=== PATIENT | female | born 1940 | race Two or more races ===

== ENCOUNTER 2016-08-23 11:04 | Inpatient (IN) | payer MEDICARE ==
[~2016-08-23] VITALS: Ht 154.9 cm; Wt 62.6 kg
--- NOTE | 2016-08-23 11:06 | NUR ---
pt bib friend. ambulatory to er bed 12. here for psych eval. per friend pt appears to be, anxious, confused stating "i cant get dressed." "im having mental issues." pt upon assessment is anxious but aaox3. on monitor. tachy otherwise stable vitals. pt states her hr tend to be on always over 100. awaiting md alvarez.
[2016-08-23] MEDS ORDERED: IV NS 0.9% 1,000 ML BAG IV ONE (11:30)
--- NOTE | 2016-08-23 11:32 | NUR ---
dr rabago at bedside for eval.
--- NOTE | 2016-08-23 11:40 | NUR ---
iv line started blood drawn and sent to lab.
[2016-08-23] MEDS ORDERED: IV NS 0.9% 1,000 ML ONE (11:49)
[2016-08-23] MEDS ORDERED: IV SET PRIMARY 1 EA INFUS.SET MC ONE (11:49)
[2016-08-23 11:55] LABS: BASOPHILS # (AUTO) 0.1 /CMM (0.0-0.2); BASOPHILS % (AUTO) 0.8 % (0.0-2.0); CALCIUM, SERUM 9.4 mg/dL (8.5-10.1); CARBON DIOXIDE 28 mmol/L (21-32); CHLORIDE 100 mmol/L (98-107); CREATININE 1.1 mg/dL (0.6-1.3); EOSINOPHILS # (AUTO) 0.2 /CMM (0.0-0.7); EOSINOPHILS % (AUTO) 1.2 % (0.0-6.0); GLUCOSE 163 mg/dL (74-106); HEMATOCRIT 43 % (33-45); HEMOGLOBIN 14.5 g/dL (11.5-14.8); LYMPHOCYTES # (AUTO) 1.7 /CMM (0.8-4.8); LYMPHOCYTES % (AUTO) 12.4 % (20.0-44.0); MEAN CORPUSCULAR HEMOGLOBIN 30 PG (26.0-33.0); MEAN CORPUSCULAR HGB CONC 33 g/dl (31.0-36.0); MEAN CORPUSCULAR VOLUME 91 fL (82-100); MONOCYTES % (AUTO) 6.9 % (2.0-12.0); NEUTROPHILS # (AUTO) 10.8 /CMM (1.8-8.9); NEUTROPHILS % (AUTO) 78.7 % (43.0-81.0); PLATELET COUNT (AUTO) 261 /CMM (150-450); POTASSIUM 3.2 mmol/L (3.5-5.1); RED BLOOD CELL COUNT(AUTO) 4.77 MIL/uL (4.0-5.2); SODIUM SERUM 138 mmol/L (136-145); UREA NITROGEN, BLOOD 21 mg/dL (7-18); WHITE BLOOD COUNT (AUTO) 13.8 K/uL (4.3-11.0)
[2016-08-23 12:01] LABS: APPEARANCE,URINE Clear (CLEAR); BILIRUBIN,URINE Negative (NEGATIVE); BLOOD, URINE Trace-lysed Ery/uL (NEGATIVE); COLOR,URINE Dark (YELLOW); KETONES,URINE Negative (NEGATIVE); LEUKOCYTE ESTERASE ,URINE Trace (NEGATIVE); NITRITE, URINE Negative (NEGATIVE); PROTEIN,URINE 30 mg/dl (NEGATIVE); UGLUCOSE Negative (NEGATIVE); UROBILINOGEN,URINE 0.2 EU/dL (0.2)
[2016-08-23 12:02] LABS: ACETAMINOPHEN 0 ug/ml (10-30); ALANINE AMINOTRANSFERASE 27 U/L (12-78); ALBUMIN 3.4 g/dL (3.4-5.0); ALCOHOL, BLOOD < 3 mg/dL (0-0); ALKALINE PHOSPHATASE 102 U/L (46-116); ASPARTATE AMINOTRANSFERASE 18 U/L (15-37); BILIRUBIN,DIRECT 0.1 mg/dL (0.0-0.2); BILIRUBIN,TOTAL 0.4 mg/dL (0.2-1.0); SALICYLATE 1.2 mg/dL (2.8-20.0); TOTAL PROTEIN, SERUM 8.1 g/dL (6.4-8.2)
--- NOTE | 2016-08-23 12:02 | NUR ---
pt to radiology for head ct scan via [facility].
[2016-08-23 12:13] LABS: BACTERIA,URINE Moderate /HPF (None Seen); RBC,URINE 0-3 /HPF (0-2); SQUAMOUS EPITHELIAL CELL,UR Moderate /HPF (None Seen)
--- NOTE | 2016-08-23 12:19 | NUR ---
CALLED ART FOR PSYCH EVAL, ETA WITHIN THE HOUR
[2016-08-23] MEDS ORDERED: VENL150T PO (12:32)
[2016-08-23] MEDS ORDERED: ATOR10TA PO (12:32)
[2016-08-23] MEDS ORDERED: HYDR25TA4 PO (12:32)
[2016-08-23] MEDS ORDERED: ZIPR80CA2 PO (12:32)
--- NOTE | 2016-08-23 13:30 | NUR ---
art shrimp trawler captain at bedside for psych eval.
--- NOTE | 2016-08-23 14:10 | NUR ---
IV removed. Catheter intact and site benign. Pressure and 4x4 applied to site. No bleeding noted.
--- NOTE | 2016-08-23 14:15 | NUR ---
report given to shay. pt awaiting transfer to psych floor.
[2016-08-23] MEDS ORDERED: ACETAMINOPHEN 325 MG TABLET PO PRN (15:00)
[2016-08-23] MEDS ORDERED: MAGNESIUM HYDROXIDE 30 ML UDC PO PRN (15:00)
[2016-08-23] MEDS ORDERED: MAG HYDROX/AL HYDROX/SIMETH 30 ML UDC PO PRN (15:00)
[2016-08-23 15:20] VITALS: BP 155/86
--- NOTE | 2016-08-23 15:59 | NUR ---
ADMITTED A 75 YEARS FEMALE ON 5150 FOR GD. PER HOLD PT. IS UNABLE TO CARE FOR SELF AND DEPRESSED, DISORGANIZED AND VERY ANXIOUS. PT. ARRIVED IN THE UNIT VIA A WHEELCHAIR AT 1420 AND BROUGHT IN BY ER STAFF WITH PTS. FRIEND. V/S TAKEN, CONTRABAND DONE, BRUISES NOTED ON THE LEFT UPPER ARM, AGREED TO HAVE A PICTURES AND REFUSED FOR SKIN ASSESSMENT ON THE OTHER PARTS OF HER BODY AND STATING THAT EVERYTHING ARE OK, PT. SIGNED THE ADMISSION PAPERS, AND PT. ORIENTED IN THE UNIT. DR. MORELAND MADE AWARE OF THE ADMISSION AND GAVE ORDERS. CALLED [facility] AT 1555 FOR THE NOTIFICATION OF THE ADMISSION AND FOR MED RECONCILIATION AND AWAITING FOR THE CALLBACK.
[2016-08-23 16:00] VITALS: BP 155/86
--- NOTE | 2016-08-23 16:28 | NUR ---
NOTIFIED [facility] FOR THE ADMISSION AND TOLD TO RECONCILE MEDS AND ORDERED MAY USE OWN C-PAP FOR THE SLEEP APNEA.
--- NOTE | 2016-08-23 17:18 | NUR ---
RN-CO: 1:1 SITTER ORDERED FOR CPAP ONLY 7P-7A SHIFT.
[2016-08-23 20:00] VITALS: BP 129/72
[2016-08-23] MEDS: risperiDONE 1 MG TABLET PO SCH (20:26)
--- NOTE | 2016-08-23 22:30 | NUR ---
GPS RN NOTES CALL MADE TO [employer] TO FOLLOW UP ON MED. RECON. KATHI KWONG RETURNED CALL. STATED THAT MED. RECON. CAN BE DONE IN THE MORNING.
[2016-08-23] MEDS: ZOLPIDEM TARTRATE 5 MG TABLET PO PRN (23:32)
[2016-08-24 07:28] LABS: ALANINE AMINOTRANSFERASE 27 U/L (12-78); ALKALINE PHOSPHATASE 90 U/L (46-116); ASPARTATE AMINOTRANSFERASE 17 U/L (15-37); BILIRUBIN,TOTAL 0.4 mg/dL (0.2-1.0); CARBON DIOXIDE 32 mmol/L (21-32); CHLORIDE 102 mmol/L (98-107); CREATININE 0.8 mg/dL (0.6-1.3); GLUCOSE 109 mg/dL (74-106); POTASSIUM 3.2 mmol/L (3.5-5.1); SODIUM SERUM 141 mmol/L (136-145); TOTAL PROTEIN, SERUM 7.1 g/dL (6.4-8.2); UREA NITROGEN, BLOOD 18 mg/dL (7-18)
[2016-08-24 08:00] VITALS: BP 116/77
[2016-08-24] MEDS: risperiDONE 1 MG TABLET PO SCH ×2 (08:28→16:16)
[2016-08-24] MEDS: VENLAFAXINE XR 75 MG CAP.SR.24H PO SCH (08:28)
[2016-08-24] MEDS ORDERED: POTASSIUM CHLORIDE 20 MEQ TAB.PRT.SR PO ONE (10:00)
[2016-08-24 16:00] VITALS: BP 113/81
--- NOTE | 2016-08-24 19:30 | NUR ---
GPS RN NOTE, RECEIVED PATIENT AWAKE AND IN BED, NO S/S OR COMPLAINTS OF PAIN AT THIS TIME. PATIENT IS DISPLAYING NO S/S OF APPARENT DISTRESS AT THIS TIME. PATIENT BREATHING IS UNLABORED WITH EQUAL RISE AND FALL OF THE CHEST. PATIENT HAS A ONE TO ONE SITTER FOR C-PAP. PATIENT IS ALERT AND ORIENTED X 2 ON ROOM AIR WITH A SPO2 95%. PATIENT COMPLAINT WITH MEDICATION, ANXIOUS, COOPERATIVE, CALM, AND NEEDS REORIENTATION. PATIENT DENIES SUICIDE AND HOMICIDAL IDEATIONS AT THIS TIME. PATIENT ASSISTED WITH TURNING AND REPOSITIONING Q2HR AND PRN FOR COMFORT AND CIRCULATION. PATIENT HAS NO NEEDS AT THIS TIME. PATIENT EDUCATED ON THE USE OF THE CALL CROSS. PATIENT BED SIDE RAILS UP X2 FOR SAFETY, BED IS LOCKED AND LOW WILL CONTINUE TO MONITOR AND MAINTAIN SAFETY.
[2016-08-24 20:00] VITALS: BP 137/70
[2016-08-24 20:26] LABS: APPEARANCE,URINE CLEAR (CLEAR); BILIRUBIN,URINE NEGATIVE (NEGATIVE); BLOOD, URINE 1+ Ery/uL (NEGATIVE); COLOR,URINE YELLOW (YELLOW); KETONES,URINE NEGATIVE (NEGATIVE); LEUKOCYTE ESTERASE ,URINE 3+ (NEGATIVE); NITRITE, URINE NEGATIVE (NEGATIVE); PROTEIN,URINE NEGATIVE (NEGATIVE); UGLUCOSE NEGATIVE (NEGATIVE); UROBILINOGEN,URINE 0.2 EU/dL (0.2)
[2016-08-24 21:03] LABS: BACTERIA,URINE None seen /HPF (None Seen); RBC,URINE 0-2 /HPF (0-2); SQUAMOUS EPITHELIAL CELL,UR Few /HPF (None Seen); WBC,URINE TOO NUMEROUS TO COUN /HPF (0-3)
[2016-08-24] MEDS: ATORVASTATIN 10 MG TABLET PO SCH (21:23)
[2016-08-24] MEDS: ZOLPIDEM TARTRATE 5 MG TABLET PO PRN (21:26)
--- NOTE | 2016-08-24 21:26 | NUR ---
GPS RN NOTE, PATIENT HAS A COMPLAINT OF NOT BEING ABLE TO SLEEP AND WOULD LIKE A SLEEPING AID AT THIS TIME. PATIENT VITAL SIGNS ARE STABLE. GAVE AMBIEN 5MG PO HS ORDERED. WILL REASSESS OF INSOMNIA AND I WILL CONTINUE TO MONITOR THIS PATIENT.
[2016-08-25] MEDS: risperiDONE 1 MG TABLET PO SCH ×2 (08:16→16:56)
[2016-08-25] MEDS: HYDROCHLOROTHIAZIDE 25 MG TABLET PO SCH (08:16)
[2016-08-25] MEDS: VENLAFAXINE XR 75 MG CAP.SR.24H PO SCH (08:16)
[2016-08-25 08:28] VITALS: BP 156/91
--- NOTE | 2016-08-25 10:06 | NUR ---
GPS RN NOTES PATIENT PARTICIPATING IN GROUP ACTIVITY
--- NOTE | 2016-08-25 12:30 | NUR ---
GPS RN NOTES MD ZUNIGA AWARE OF PATIENT K LEVEL NO NEW ORDERS AT THIS TIME. WILL MONITOR
[2016-08-25 16:00] VITALS: BP 137/84
--- NOTE | 2016-08-25 19:30 | NUR ---
GPS RN NOTES IN THE DINING ROOM WATCHING TV PROGRAM.CALM,FOLLOW INSTRUCTION
[2016-08-25 19:57] VITALS: BP 124/72
[2016-08-25] MEDS: ATORVASTATIN 10 MG TABLET PO SCH (21:00)
[2016-08-25] MEDS: SULFAMETH/TRIMETH 800/160 MG 1 UDTAB TABLET PO SCH (21:00)
--- NOTE | 2016-08-25 21:00 | NUR ---
GPS RN NOTES MED COMPLIANT,AMBULATORY
[2016-08-25] MEDS: ZOLPIDEM TARTRATE 5 MG TABLET PO PRN (22:05)
--- NOTE | 2016-08-25 22:05 | NUR ---
GPS RN NOTES C/O INSOMNIA,AMBIEN 5MG PO GIVEN FOR SLEEP,AND PER PATIENT REQUEST.
--- NOTE | 2016-08-25 22:15 | NUR ---
GPS RN NOTES ON BED WITH CPAP ON.SITTER AT BEDSIDE.
[2016-08-26 06:31] LABS: BASOPHILS % (AUTO) 0.5 % (0.0-2.0); EOSINOPHILS # (AUTO) 0.6 /CMM (0.0-0.7); HEMATOCRIT 38 % (33-45); HEMOGLOBIN 12.8 g/dL (11.5-14.8); LYMPHOCYTES # (AUTO) 2.4 /CMM (0.8-4.8); LYMPHOCYTES % (AUTO) 27.3 % (20.0-44.0); MEAN CORPUSCULAR HEMOGLOBIN 31 PG (26.0-33.0); MEAN CORPUSCULAR HGB CONC 34 g/dl (31.0-36.0); MEAN CORPUSCULAR VOLUME 91 fL (82-100); MONOCYTES # (AUTO) 0.8 /CMM (0.1-1.30); NEUTROPHILS # (AUTO) 4.9 /CMM (1.8-8.9); NEUTROPHILS % (AUTO) 56.2 % (43.0-81.0); PLATELET COUNT (AUTO) 232 /CMM (150-450); RDW COEFFICIENT OF VARIATION 13.8 (11.5-15.0); RED BLOOD CELL COUNT(AUTO) 4.17 MIL/uL (4.0-5.2); WHITE BLOOD COUNT (AUTO) 8.7 K/uL (4.3-11.0)
[2016-08-26 06:39] LABS: CALCIUM, SERUM 8.9 mg/dL (8.5-10.1); CARBON DIOXIDE 30 mmol/L (21-32); CHLORIDE 103 mmol/L (98-107); GLUCOSE 111 mg/dL (74-106); POTASSIUM 3.8 mmol/L (3.5-5.1); SODIUM SERUM 141 mmol/L (136-145); UREA NITROGEN, BLOOD 16 mg/dL (7-18)
[2016-08-26 08:00] VITALS: BP 135/89
[2016-08-26] MEDS: SULFAMETH/TRIMETH 800/160 MG 1 UDTAB TABLET PO SCH ×2 (08:13→21:26)
[2016-08-26] MEDS: VENLAFAXINE XR 75 MG CAP.SR.24H PO SCH (08:13)
[2016-08-26] MEDS: HYDROCHLOROTHIAZIDE 25 MG TABLET PO SCH (08:13)
[2016-08-26] MEDS: risperiDONE 1 MG TABLET PO SCH ×2 (08:13→21:27)
[2016-08-26 16:00] VITALS: BP 136/74
--- NOTE | 2016-08-26 16:42 | NUR ---
Initial Discharge Plan: Patient lives at home alone [id number] [place] [address] ([phone]). Patient would like to return home upon discharge. household worker spoke to patient's friend Lexus Joy ([phone]) who confirmed that patient does live home alone. household worker will help form a safe and proper discharge.
[2016-08-26 19:41] VITALS: BP 137/74
[2016-08-26] MEDS: ATORVASTATIN 10 MG TABLET PO SCH (21:26)
[2016-08-26] MEDS: ZOLPIDEM TARTRATE 5 MG TABLET PO PRN (21:27)
[2016-08-27 08:00] VITALS: BP 112/63
[2016-08-27 08:02] LABS: CHOLESTEROL 162 mg/dL (<200); HDL CHOLESTEROL 55 mg/dL (40-60); LDL 87 mg/dL (0-99); TRIGLYCERIDES 78 mg/dL (30-150)
[2016-08-27] MEDS: SULFAMETH/TRIMETH 800/160 MG 1 UDTAB TABLET PO SCH ×2 (08:20→20:59)
[2016-08-27] MEDS: VENLAFAXINE XR 75 MG CAP.SR.24H PO SCH (08:20)
[2016-08-27] MEDS: HYDROCHLOROTHIAZIDE 25 MG TABLET PO SCH (08:21)
[2016-08-27 16:00] VITALS: BP 127/77
[2016-08-27] MEDS: ATORVASTATIN 10 MG TABLET PO SCH (21:00)
[2016-08-27] MEDS: risperiDONE 1 MG TABLET PO SCH (21:00)
[2016-08-27] MEDS: ZOLPIDEM TARTRATE 5 MG TABLET PO PRN (21:06)
[2016-08-27 21:16] VITALS: BP 132/52
--- NOTE | 2016-08-28 07:30 | NUR ---
RN INITIAL NOTE PATIENT RECEIVED SITTING UP IN BED, EATING BREAKFAST. AWAKE, ALERT ABLE TO MAKE NEEDS KNOWN. NO S/S OR COMPLAINTS OF PAIN AT THIS TIME. PATIENT IS DISPLAYING NO S/S OF APPARENT DISTRESS AT THIS TIME. SATING WELL ON ROOM AIR. RESPIRATIONS ARE EVEN AND UNLABORED. NO S/S OF SOB OR RESPIRATORY DISTRESS. SAFETY PRECAUTIONS IMPLEMENTED, BED IN LOCKED, LOW POSITION WITH TWO SIDE RAILS UP. CALL LIGHT WITHIN EASY REACH. WILL CONTINUE TO MONITOR.
[2016-08-28 08:00] VITALS: BP 137/63
[2016-08-28 08:09] VITALS: BP 133/79
[2016-08-28] MEDS: SULFAMETH/TRIMETH 800/160 MG 1 UDTAB TABLET PO SCH ×2 (09:12→21:34)
[2016-08-28] MEDS: HYDROCHLOROTHIAZIDE 25 MG TABLET PO SCH (09:12)
[2016-08-28] MEDS: VENLAFAXINE XR 75 MG CAP.SR.24H PO SCH (09:12)
[2016-08-28 16:00] VITALS: BP 116/86
[2016-08-28] MEDS: OLANZAPINE 2.5 MG TABLET PO SCH (16:05)
--- NOTE | 2016-08-28 16:51 | NUR ---
farmworker chicken farm attempted to contact patient's brother Sudhakar Thorpe , However he was unavailable. farmworker chicken farm left him a voicemail with her contact information. farmworker chicken farm will follow-up.
[2016-08-28 20:00] VITALS: BP 127/74
[2016-08-28] MEDS: OLANZAPINE 10 MG TABLET PO SCH (21:34)
[2016-08-28] MEDS: ATORVASTATIN 10 MG TABLET PO SCH (21:34)
[2016-08-28] MEDS: ZOLPIDEM TARTRATE 5 MG TABLET PO PRN (21:35)
--- NOTE | 2016-08-29 06:40 | NUR ---
RN GPS NOTE PT .REMAINED IN STABLE CONDITION RESTING IN HER BED ,NO ACUTE DISTRESS NOTED ATTENDED ALL NEEDS AND ANTICIPATED , DENIES SI/ HI AT THIS TIME,WILL ENDORSE TO NEXT SHIFT FOR CONTINUITY OF CARE
[2016-08-29 08:00] VITALS: BP 142/74
[2016-08-29] MEDS: OLANZAPINE 2.5 MG TABLET PO SCH (08:22)
[2016-08-29] MEDS: HYDROCHLOROTHIAZIDE 25 MG TABLET PO SCH (08:22)
[2016-08-29] MEDS: VENLAFAXINE XR 75 MG CAP.SR.24H PO SCH (08:22)
[2016-08-29] MEDS: SULFAMETH/TRIMETH 800/160 MG 1 UDTAB TABLET PO SCH ×2 (08:22→21:06)
--- NOTE | 2016-08-29 13:09 | NUR ---
CALLED THE OFFICE OF DR. VU FOR THE CONSULT.
--- NOTE | 2016-08-29 16:22 | NUR ---
rodent control worker attempted to contact patient's brother Sudhakar Thorpe , However he was unavailable. rodent control worker left him a voicemail with her contact information. rodent control worker will follow-up.
[2016-08-29 16:29] VITALS: BP 139/74
[2016-08-29 20:00] VITALS: BP 133/75
[2016-08-29] MEDS: ATORVASTATIN 10 MG TABLET PO SCH (21:06)
[2016-08-29] MEDS: OLANZAPINE 10 MG TABLET PO SCH (21:06)
[2016-08-29] MEDS: ZOLPIDEM TARTRATE 5 MG TABLET PO PRN (21:06)
--- NOTE | 2016-08-29 21:06 | NUR ---
GPS RN NOTE, PATIENT HAS A COMPLAINT OF NOT BEING ABLE TO SLEEP AND WOULD LIKE A SLEEPING AID AT THIS TIME. PATIENT VITAL SIGNS ARE STABLE. GAVE AMBIEN 2.5MG PO HS ORDERED. WILL REASSESS OF INSOMNIA AND I WILL CONTINUE TO MONITOR THIS PATIENT.
[2016-08-30 08:12] VITALS: BP 144/77
[2016-08-30] MEDS: HYDROCHLOROTHIAZIDE 25 MG TABLET PO SCH (08:40)
[2016-08-30] MEDS: VENLAFAXINE XR 75 MG CAP.SR.24H PO SCH (08:40)
[2016-08-30] MEDS: OLANZAPINE 2.5 MG TABLET PO SCH (08:41)
[2016-08-30] MEDS: SULFAMETH/TRIMETH 800/160 MG 1 UDTAB TABLET PO SCH (08:41)
--- NOTE | 2016-08-30 14:27 | NUR ---
utility worker driver spoke to patient's brother Sudhakar Thorpe ([phone]) who confirmed that patient lives at home with a roommate. utility worker driver informed patient's brother that patient would like to return home upon discharge and patient's brother was agreeable with the discharge plan. utility worker driver will follow-up.
[2016-08-30 15:49] VITALS: BP 130/76
[2016-08-30 20:00] VITALS: BP 126/70
[2016-08-30] MEDS: ATORVASTATIN 10 MG TABLET PO SCH (21:37)
[2016-08-30] MEDS: OLANZAPINE 10 MG TABLET PO SCH (21:37)
[2016-08-30] MEDS: ZOLPIDEM TARTRATE 5 MG TABLET PO PRN (21:38)
--- NOTE | 2016-08-30 21:38 | NUR ---
GPS/RN NOTE: C/O INSOMNIA, AMBIEN 2.5 MG AB PO GIVEN.
[2016-08-31 06:57] LABS: ALANINE AMINOTRANSFERASE 35 U/L (12-78); ALBUMIN 3.1 g/dL (3.4-5.0); ALKALINE PHOSPHATASE 97 U/L (46-116); ASPARTATE AMINOTRANSFERASE 24 U/L (15-37); BILIRUBIN,TOTAL 0.3 mg/dL (0.2-1.0); CALCIUM, SERUM 9.4 mg/dL (8.5-10.1); CARBON DIOXIDE 32 mmol/L (21-32); CHLORIDE 100 mmol/L (98-107); CREATININE 1.1 mg/dL (0.6-1.3); GLUCOSE 103 mg/dL (74-106); SODIUM SERUM 136 mmol/L (136-145); TOTAL PROTEIN, SERUM 7.3 g/dL (6.4-8.2); UREA NITROGEN, BLOOD 23 mg/dL (7-18)
[2016-08-31 08:00] VITALS: BP 132/86
[2016-08-31] MEDS: OLANZAPINE 2.5 MG TABLET PO SCH ×2 (08:11→16:47)
[2016-08-31] MEDS: VENLAFAXINE XR 75 MG CAP.SR.24H PO SCH (08:11)
[2016-08-31] MEDS: HYDROCHLOROTHIAZIDE 25 MG TABLET PO SCH (08:11)
[2016-08-31 08:37] LABS: BILIRUBIN,URINE NEGATIVE (NEGATIVE); BLOOD, URINE TRACE Ery/uL (NEGATIVE); KETONES,URINE NEGATIVE (NEGATIVE); LEUKOCYTE ESTERASE ,URINE 2+ (NEGATIVE); NITRITE, URINE NEGATIVE (NEGATIVE); PROTEIN,URINE NEGATIVE (NEGATIVE); UGLUCOSE NEGATIVE (NEGATIVE); UROBILINOGEN,URINE 0.2 EU/dL (0.2)
[2016-08-31 08:40] LABS: APPEARANCE,URINE SLIGHTLY CLOUDY (CLEAR); COLOR,URINE YELLOW (YELLOW)
[2016-08-31 08:48] LABS: WBC,URINE 21-50 /HPF (0-3)
[2016-08-31 08:49] LABS: BACTERIA,URINE Few /HPF (None Seen)
--- NOTE | 2016-08-31 08:53 | NUR ---
GPS RN NOTE: PT WAS SEEN AND EXAMINE BY DR MULLIGAN NOTIFIED OF UA NO NEW ORDERS AT THIS TIME WILL CONTINUE MONITORING
--- NOTE | 2016-08-31 19:30 | NUR ---
GPS/VETERANS SERVICES SPECIALIST; RECEIIVED PT AT THE DAY ROOM SITTING TALKING TO HER VISITORS. DENIES PAIN.
[2016-08-31 20:00] VITALS: BP 156/82
--- NOTE | 2016-08-31 20:45 | NUR ---
GPS/COLOR MIXER; LIPITOR 10 MG PO AND ZYPREXA 10 MG PO GIVEN EARLY PER PT REQUEST DUE TO SHE WANTS TO SLEEP.
[2016-08-31] MEDS: ATORVASTATIN 10 MG TABLET PO SCH (20:46)
[2016-08-31] MEDS: OLANZAPINE 10 MG TABLET PO SCH (20:47)
--- NOTE | 2016-08-31 20:50 | NUR ---
GPS/IMPROVEMENT ANALYST; PT REQUESTING FOR SOMETHING TO SLEEP. PT KIND OF ANXIOUS. ATIVAN 1 MG PO Q4 PRN GIVEN.
[2016-08-31] MEDS: LORAZEPAM 0.5 MG TABLET PO PRN (20:52)
--- NOTE | 2016-08-31 21:00 | NUR ---
GPS/LOG DECK TENDER; CHECKED PT IN BED WITH C/PAP ON . ADAN HUERTA WAS NOTIFIED TO WATCH THE PT .
--- NOTE | 2016-09-01 06:26 | NUR ---
GPS/FIELD ARTILLERY RADAR OPERATOR; SLEPT AT GOOD INTERVALS. TOLERATED C/PAP. BREATHING NON LABORED. SITTER PRESENT FOR SAFETY. WILL ENDORSE TO THE DAY SHIFT NURSE.
[2016-09-01 08:31] VITALS: BP 122/75
[2016-09-01] MEDS: VENLAFAXINE XR 75 MG CAP.SR.24H PO SCH (08:42)
[2016-09-01] MEDS: OLANZAPINE 2.5 MG TABLET PO SCH (08:42)
[2016-09-01] MEDS: HYDROCHLOROTHIAZIDE 25 MG TABLET PO SCH (08:44)
[2016-09-01 15:45] VITALS: BP 142/75
[2016-09-01 20:07] VITALS: BP 121/69
[2016-09-01] MEDS: OLANZAPINE 10 MG TABLET PO SCH (21:53)
[2016-09-01] MEDS: LORAZEPAM 0.5 MG TABLET PO PRN (21:53)
[2016-09-01] MEDS: ATORVASTATIN 10 MG TABLET PO SCH (21:53)
[2016-09-02 08:00] VITALS: BP 156/82
[2016-09-02] MEDS: HYDROCHLOROTHIAZIDE 25 MG TABLET PO SCH (08:22)
[2016-09-02] MEDS: VENLAFAXINE XR 75 MG CAP.SR.24H PO SCH (08:22)
[2016-09-02] MEDS: AMLODIPINE BESYLATE 5 MG TABLET PO SCH (11:28)
[2016-09-02 16:00] VITALS: BP 113/81
[2016-09-02 20:15] VITALS: BP 130/66
[2016-09-02] MEDS: OLANZAPINE 10 MG TABLET PO SCH (21:04)
[2016-09-02] MEDS: ATORVASTATIN 10 MG TABLET PO SCH (21:04)
[2016-09-02] MEDS: LORAZEPAM 0.5 MG TABLET PO PRN (21:05)
[2016-09-03 08:00] VITALS: BP 135/75
[2016-09-03] MEDS: VENLAFAXINE XR 75 MG CAP.SR.24H PO SCH (08:32)
[2016-09-03] MEDS: HYDROCHLOROTHIAZIDE 25 MG TABLET PO SCH (08:33)
[2016-09-03] MEDS: AMLODIPINE BESYLATE 5 MG TABLET PO SCH (08:33)
--- NOTE | 2016-09-03 15:13 | NUR ---
mission worker attempted to contact patient's brother Sudhakar Thorpe . Left a message that patient was being discharged on and asked whether he is able to come and pick her up. SW left contact details. SW contact the patient's friend Lexus Joy ([phone]) who stated that she can pick her up at 11AM. SW called patient's brother again and left a message on his voicemail regarding this information.
[2016-09-03 16:00] VITALS: BP 153/70
[2016-09-03 20:37] VITALS: BP 117/62
[2016-09-03] MEDS: OLANZAPINE 10 MG TABLET PO SCH (21:21)
[2016-09-03] MEDS: ATORVASTATIN 10 MG TABLET PO SCH (21:21)
[2016-09-03] MEDS: LORAZEPAM 0.5 MG TABLET PO PRN (21:22)
--- NOTE | 2016-09-04 07:30 | NUR ---
received pt. alert,med compliant.appetite good,no complaints offered.
[2016-09-04 08:00] VITALS: BP 139/91
[2016-09-04] MEDS: VENLAFAXINE XR 75 MG CAP.SR.24H PO SCH (09:01)
[2016-09-04] MEDS: AMLODIPINE BESYLATE 5 MG TABLET PO SCH (09:02)
[2016-09-04] MEDS: HYDROCHLOROTHIAZIDE 25 MG TABLET PO SCH (09:02)
[2016-09-04] MEDS ORDERED: ACETAMINOPHEN 325 MG TABLET PO PRN (12:30)
[2016-09-04] MEDS ORDERED: MAGNESIUM HYDROXIDE 30 ML UDC PO PRN (12:30)
[2016-09-04] MEDS ORDERED: LORAZEPAM 0.5 MG TABLET PO PRN (12:30)
[2016-09-04] MEDS ORDERED: MAG HYDROX/AL HYDROX/SIMETH 30 ML UDC PO PRN (12:30)
--- NOTE | 2016-09-04 14:30 | NUR ---
dr. smith in to see pt.
--- NOTE | 2016-09-04 14:51 | NUR ---
Confirmed with patient's friend Lexus Rufino ([phone]) that she will berry picker the patient tomorrow at 11AM. Left another message for her brother Sudhakar since he did not answer.
[2016-09-04 16:00] VITALS: BP 114/77
[2016-09-04 20:00] VITALS: BP 126/57
--- NOTE | 2016-09-04 21:00 | NUR ---
RN NOTES PT IS FEELING ANXIOUS- ATIVAN 1 MG PO GIVEN S ORDERED, V/S STABLE
[2016-09-04] MEDS ORDERED: ATORVASTATIN 10 MG TABLET PO SCH (22:00)
[2016-09-04] MEDS ORDERED: OLANZAPINE 10 MG TABLET PO SCH (22:00)
[2016-09-05 08:20] VITALS: BP 109/77
--- NOTE | 2016-09-05 08:30 | NUR ---
RN-CO: Called Dr Roberts and she gave an order to discharge patient today with home healthcare. Patient remained calm and cooperative to care. No acute distress noted, denied suicidal and homicidal ideation. Denied auditory and visual hallucination.
[2016-09-05] MEDS ORDERED: VENLAFAXINE XR 75 MG CAP.SR.24H PO SCH (09:00)
[2016-09-05] MEDS ORDERED: AMLODIPINE BESYLATE 5 MG TABLET PO SCH (09:00)
[2016-09-05] MEDS ORDERED: HYDROCHLOROTHIAZIDE 25 MG TABLET PO SCH (09:00)
[2016-09-05 10:39] VITALS: BP 129/77
--- NOTE | 2016-09-05 11:50 | NUR ---
GPS/RN PATIENT CLEARED FOR DISCHARGE HOME BY DR GONSALEZ AND DR FELIX. PRESCRIPTIONS AND PACKET EXPLAINED TO PATIENT AND FRIEND KONSTANTIN, VERBALIZED UNDERSTANDING. ALL D/C PAPERWORK SIGNED, BELONGINGS RETURNED AND SIGNED FOR BY PATIENT, CPAP MACHINE RETURNED TO PATIENT. PATIENT DENIES SI/HI/AH AT TIME OF DISCHARGE, PSYCHIATRIC TREATMENT PLANS MET, HOME HEALTH ORDERED, LEFT UNIT STABLE CONDITION, CALM, COOPERATIVE, NO DISTRESS, WITH FRIEND KONSTANTIN AND ACCESS SERVICES REPRESENTATIVE AT SIDE.
--- NOTE | 2016-09-05 14:43 | NUR ---
Discharge Note: Patient was discharged back home to [id number] [place] [address] [place] [address] with her friend Lexus Joy ([phone]) via private transportation. Brother Sudhakar ([phone]) was informed via voicemail. Home health order was faxed to [facility] ( , fax: [phone]). Patient denied suicidal/homicidal ideations at the time of discharge. Facilitated info to IDT team who are in agreement with discharge arrangement. The multidisciplinary exitcare form was done, printed, signed, and given to the patient.
--- NOTE | 2016-09-06 10:23 | NUR ---
Informed by [facility] (Josep- [phone]) via [employer] that a nurse cannot go out until Friday. Yue contacted the patient ([phone]) who stated that this was okay. She also stated her friend Lexus took her to the pharmacy to get her medications and she has been taking them. She stated that she would like to know when they will be coming on Friday and YUE asked Tono from the [facility] if they can please call the patient, which he said he would.
== END 2016-09-05 11:50 | disposition home health service (06) | DRG 885 ==
LOC: ER 11:05 → GPS 14:24
PROVIDERS: ADMIT Psychiatry & Neurology Psychiatry; ATTEND Nurse Practitioner Acute Care
DX: F25.0 Schizoaffective disorder, bipolar type (principal); F23 Brief psychotic disorder; N39.0 Urinary tract infection, site not specified; E78.5 Hyperlipidemia, unspecified; E66.9 Obesity, unspecified; E87.6 Hypokalemia; B35.1 Tinea unguium; Z73.6 Limitation of activities due to disability; I10 Essential (primary) hypertension; Z79.899 Other long term (current) drug therapy; Z86.73 Personal history of transient ischemic attack (TIA), and cerebral infarction without residual deficits; G47.33 Obstructive sleep apnea (adult) (pediatric); F32.9 Major depressive disorder, single episode, unspecified; D72.829 Elevated white blood cell count, unspecified; R73.9 Hyperglycemia, unspecified; F43.10 Post-traumatic stress disorder, unspecified; Z68.26 Body mass index [BMI] 26.0-26.9, adult
CPT/HCPCS: 36415; 70450-TC; 80048-TC; 80053-TC; 80061-TC; 80076-TC; 80305; 81000-TC; 85025-TC; 87081-TC; 87086-TC; A4606; G0480; J7030; Z7610